=== PATIENT | female | born 1950 | race Caucasian/White ===

== ENCOUNTER → 2017-03-13 | Outpatient (CLI) | payer MEDICARE, OTHER | END | disposition home or self-care (01) | LOC: PCVCCLINIC 14:40 | PROVIDERS: ATTEND Internal Medicine | DX: I26.99 Other pulmonary embolism without acute cor pulmonale (principal); I11.0 Hypertensive heart disease with heart failure; N18.2 Chronic kidney disease, stage 2 (mild); E78.5 Hyperlipidemia, unspecified; Z79.01 Long term (current) use of anticoagulants; Z90.710 Acquired absence of both cervix and uterus; Z87.891 Personal history of nicotine dependence; Z79.899 Other long term (current) drug therapy | CPT/HCPCS: 80061; 93005; G0463 ==

== ENCOUNTER → 2017-06-06 | Outpatient (CLI) | payer MEDICARE, OTHER ==
--- NOTE | 2017-06-06 16:16 | PCVCIMAG ---
APPROVED REPORT Study performed: 06/06/2017 13:40:31 EXAM: Comprehensive 2D, Doppler, and color-flow Echocardiogram Patient Location: Echo lab Status: routine BSA: 2.10 HR: 64 bpmBP: 126/84 mmHg Rhythm: NSR Other Information Study Quality: Technically Difficult Risk Factors: Cardiac Risk Factors: HTN, Hyperlipidemia Indications Pulmonary Embolism Hypertension/HDD 2D Dimensions LVEF(%): 37.43 (>50%) IVSd: 10.39 (7-11mm)LVOT Diam: 23.45 (18-24mm) LVDd: 49.76 mm PWd: 11.41 (7-11mm)Ascending Ao: 33.19 (22-36mm) LVDs: 40.75 (25-40mm) Left Atrium: 33.46 (27-40mm) Aortic Root: 31.78 mm LV Single Plane 4CH: 73.19 % LV Single Plane 2CH: 61.57 %Rendon's LVEF: 67.38 % Biplane EF: 69.8 % Volumes Left Atrial Volume (Systole) Single Plane 4CH: 44.90 mLSingle Plane 2CH: 55.89 mL Biplane LA Volume: 54.00 mLLA ESV Index: 26.00 mL/m2 Aortic Valve AoV Peak Clinton.: 1.38 m/s AO Peak Gr.: 7.60 mmHgLVOT Max P.32 mmHg LVOT Max V: 1.04 m/s JOSE JUAN Vmax: 3.25 cm2 Mitral Valve E/A Ratio: 0.6 MV Decel. Time: 228.51 ms MV E Max Clinton.: 0.59 m/s MV A Clinton.: 0.94 m/s IVRT: 134.95 ms TDI E/Lateral E': 11.80E/Medial E': 14.75 Medial E' Clinton.: 0.04 m/s Lateral E' Clinton.: 0.05 m/s Pulmonary Valve PV Peak Clinton.: 1.08 m/sPV Peak Gr.: 4.64 mmHg Pulmonary Vein P Vein S: 0.45 m/sP Vein A: 0.34 m/s P Vein D: 0.35 m/sP Vein A Dur.: 103.8 msec P Vein S/D Ratio: 1.29 Tricuspid Valve TR Peak Clinton.: 2.12 m/s TR Peak Gr.: 17.99 mmHg TV Vmax: 0.53 m/sPA Pressure: 33.00 mmHg Left Ventricle The left ventricle is normal size. There is normal LV segmental wall motion. There is normal left ventricular wall thickness. Left ventricular systolic function is normal. The left ventricular ejection fraction is within the normal range. LVEF is 65-70%. Grade I diastolic dysfunction Right Ventricle The right ventricle is normal size. The right ventricular systolic function is normal. Atria The left atrium size is normal. The right atrium size is normal. Aortic Valve The aortic valve is normal in structure. No aortic regurgitation is present. There is no aortic valvular stenosis. Mitral Valve The mitral valve is normal in structure. There is no mitral valve regurgitation noted. No evidence of mitral valve stenosis. Tricuspid Valve The tricuspid valve is normal in structure. Trace to mild tricuspid regurgitation. Pulmonic Valve The pulmonary valve is normal in structure. There is no pulmonic valvular regurgitation. Great Vessels The aortic root is normal in size. The ascending aorta is normal in size. Dilated IVC with poor inspiration collapse is consistent with elevated right atrial pressure. Pericardium There is no pericardial effusion. There is no pleural effusion. <Conclusion> Left ventricular systolic function is normal. There is normal LV segmental wall motion. Normal RV size and function LVEF is 65-70%. Grade I diastolic dysfunction The aortic valve is normal in structure. No aortic valvular stenosis or insufficiency. The mitral valve is normal in structure. No mitral valve regurgitation noted. Pulmonary artery pressure could not be reliably ascertained There is no pericardial effusion.
== END | disposition home or self-care (01) ==
LOC: PCVCIMAG 13:38
PROVIDERS: ATTEND Internal Medicine
DX: I07.1 Rheumatic tricuspid insufficiency (principal); I26.99 Other pulmonary embolism without acute cor pulmonale; I12.9 Hypertensive chronic kidney disease with stage 1 through stage 4 chronic kidney disease, or unspecified chronic kidney disease; N18.2 Chronic kidney disease, stage 2 (mild); Z79.01 Long term (current) use of anticoagulants; Z90.710 Acquired absence of both cervix and uterus; Z79.899 Other long term (current) drug therapy; Z87.891 Personal history of nicotine dependence
CPT/HCPCS: 93306; G0463

== ENCOUNTER → 2020-08-05 | Outpatient (CLI) | payer MEDICARE, OTHER ==
--- NOTE | 2020-08-05 11:58 | RAD ---
Examination: Digital diagnostic bilateral mammogram INDICATION: 70-year-old woman with non focal left breast discomfort and concern for possible left breast malignancy. COMPARISON: None. This will serve as a baseline examination. She reports she has never had a mammogram. TECHNIQUE: CC and MLO views of both breasts were obtained with 2-D and 3-D technique and reviewed with computer-aided detection. FINDINGS: Scattered fibroglandular densities. No dominant mass, suspicious calcification or architectural distortion is evident in either breast. Multiple cysts are present in the anterior subareolar left breast, associated with mild architectural variation. No skin thickening or nipple retraction. IMPRESSION: Benign findings on bilateral diagnostic mammogram. No evidence of malignancy. BI-RADS Category 2 Benign findings Recommend clinical management which may include biopsy if there are any clinically suspicious findings. In the absence of a clinically suspicious finding, recommend routine mammographic screening next due in one year. Discussed with patient. Patient entered into a reminder system with targeted due date for next mammogram. Electronically signed by: Jhon Dill MD (08/05/2020 11:47 AM) [id number]
== END ==
LOC: MAMMO 09:40
PROVIDERS: ATTEND Nurse Practitioner Family
DX: N60.01 Solitary cyst of right breast (principal); N60.02 Solitary cyst of left breast; N64.4 Mastodynia
CPT/HCPCS: 77066; G0279; 77062

== ENCOUNTER → 2022-01-09 | Outpatient (CLI) | payer MEDICARE, OTHER ==
--- NOTE | 2022-01-09 15:11 | KCIC ---
EXAM: Chest, 2 views. HISTORY: Cigarette smoking. COMPARISON: None. FINDINGS: 2 views of the chest are obtained. There are chronic appearing interstitial changes. The he art is normal in size. There is a 4.6 cm benign calcified lesion involving the anterior right cardiop hrenic angle. IMPRESSION: Chronic appearing interstitial changes. Electronically signed by: Madelaine Coleman MD (01/09/2022 3:08 PM) [id number]
== END ==
LOC: KCIC 10:23
PROVIDERS: ATTEND Nurse Practitioner Family
DX: Z01.818 Encounter for other preprocedural examination (principal)
CPT/HCPCS: 71046